=== PATIENT | female | born 1995 | race Caucasian/White ===

== ENCOUNTER 2020-11-03 17:34 | Emergency (ER) | payer OTHER, SELFPAY ==
--- NOTE | ~2020-11-03 | XR_ITS ---
EXAMINATION: XR chest 1V portable DATE: 11/03/2020 21:16 INDICATION: Shortness of breath. TECHNIQUE: A single frontal view of the chest was obtained on 2 radiographs. COMPARISON: None. FINDINGS: There is no pneumonia, pleural effusion, or pneumothorax. The heart size is normal. IMPRESSION: 1. No acute cardiopulmonary disease. Reviewed, dictated and finalized at location [facility]
[2020-11-03 17:44] VITALS: BP 120/71; PULSE 91; RESP 20; TEMP 36.8; O2SAT 100
--- NOTE | 2020-11-03 21:32 | ED.SOB ---
HPI - SOB/Dyspnea General Chief Complaint: Shortness of Breath/Dyspnea Stated Complaint: sob/body aches Time Seen by Provider: 11/03/20 21:04 Source: patient Mode of arrival: ambulatory Limitations: no limitations History of Present Illness HPI Narrative: A 24 year old female comes into the emergency department with complaints of shortness of breath, headache, fatigue and generalized body aches. Patient states that this has been going on for approximately the last 10 days. 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 She denies any fever or chills. Related Data Allergies Allergy/AdvReac Type Severity Reaction Status Date / Time No Known Allergies Allergy Unverified 08/30/14 00:11 Review of Systems Review of Systems: All systems reviewed & are unremarkable except as noted in HPI and below (the HPI) Exam Const: General: healthy appearing, no acute distress and alert Orientation/consciousness: patient oriented x3 HENMT: Head: normal to inspection Ears: EAC's normal General nose exam: Normal nares present Face and sinus: normal facial exam Eyes: Conjunctivae: conjunctivae normal Pupils: Equal, round and reactive pupils present EOM: EOMs intact bilaterally Neck: Neck: normal visual inspection and no lymphadenopathy Chest: Chest palpation & inspection: normal inspection of the chest Resp: Effort & Inspection: normal respiratory effort Auscultation: clear to auscultation bilaterally Cardio: Rate: regular rate Rhythm: regular rhythm GI: Inspection: non-distended GI Palp: Yes Soft to palpation, No Tenderness to palpation present (GI), No Guarding due to palpation present (GI) and No Rigid due to palpation : General: No CVA tenderness and Yes no CVA tenderness Skin: General skin exam: normal color Rashes: no rashes Neuro: General: patient oriented x3, moves all extremities, no meningeal signs and CN's II-XI intact bilaterally Gait exam (Neuro): Normal gait present Extrem: General: normal to inspection Psych: Mental Status: mental status grossly normal Thought content: Yes Normal thought content present Course Vital Signs Vital signs: Vital Signs Temperature 36.8 C 11/03/20 17:44 Pulse Rate 91 11/03/20 17:44 Respiratory Rate 20 11/03/20 17:44 Blood Pressure 120/71 11/03/20 17:44 Pulse Oximetry 100 11/03/20 17:44 Temperature 36.8 C 11/03/20 17:44 Pulse Rate 91 11/03/20 17:44 Respiratory Rate 20 11/03/20 17:44 Blood Pressure 120/71 11/03/20 17:44 Pulse Oximetry 100 11/03/20 17:44 MDM - SOB/Dyspnea MDM Narrative Medical decision making narrative: In brief this 24 year old comes into this ED with complaints of shortness of breath and generalized flu-like symptoms. Patient's story consistent with COVID like illness, will perform swab. Pt did indicated a history of asthma but states that this SOB does not feel consistent with that, she denied any wheezing. Pt instructed on isolation and quarantine process. Recommended to follow up with her PCP. Differential Diagnosis Differential diagnosis: Likely acute exacerbation of chronic obstructive airways disease, congestive heart failure, community acquired pneumonia, asthma with exacerbation and pulmonary embolism Imaging Data Radiologist's impression: ITS Impressions Chest X-Ray 11/03/20 21:17 IMPRESSION: 1. No acute cardiopulmonary disease. Discharge Plan Discharge Clinical Impression: Suspected 2019-nCoV infection Patient Disposition: Home, Self-Care Condition: Improved Instructions: COVID-19 (Coronavirus Disease 2019) (ED) Additional Instructions: Take all medications as directed. Use acetaminophen, ibuprofen or naproxen as needed for pain/fever relief. Stay home and quarantine until you have reached 10 days from your first day of symptoms or if you have a negative swab. Follow-up/Referrals: PHYSICIAN,MA[facility]CEAN [Pr
[2020-11-03 22:00] VITALS: BP 123/68; PULSE 78; RESP 16; O2SAT 98
[2020-11-04 20:42] LABS: SARS-CoV-2 RNA PCR Negative
== END 2020-11-03 22:02 | disposition home or self-care (01) ==
PROVIDERS: Emergency Provider Emergency Medicine
DX: R06.02 Shortness of breath (principal); R51.9 Headache, unspecified; R53.83 Other fatigue; Z20.822 Contact with and (suspected) exposure to COVID-19
CPT/HCPCS: 71045; 99283; C9803; U0003; U0005